=== PATIENT | female | born 1990 | race Two or more races ===

== ENCOUNTER 2018-08-12 16:54 | Emergency (ER) | payer MEDICAID ==
[~2018-08-12] VITALS: Ht 160 cm; Wt 106.6 kg
[2018-08-12 17:33] VITALS: BP 108/57
== END 2018-08-12 20:05 | disposition home or self-care (01) ==
LOC: ER 16:57
DX: M62.830 Muscle spasm of back (principal); M25.512 Pain in left shoulder; M25.511 Pain in right shoulder; M54.2 Cervicalgia; V49.59XA Passenger injured in collision with other motor vehicles in traffic accident, initial encounter; Y93.89 Activity, other specified; Y99.8 Other external cause status; Y92.488 Other paved roadways as the place of occurrence of the external cause
CPT/HCPCS: 72040; 72070; 72100; 73020

== ENCOUNTER 2018-11-05 08:04 | Emergency (ER) | payer OTHER, MEDICAID ==
[~2018-11-05] VITALS: Ht 160 cm; Wt 104.3 kg
[2018-11-05] MEDS ORDERED: ACETAMINOPHEN 325 MG TAB PO ONE (08:15)
[2018-11-05 08:17] VITALS: BP 111/69
[2018-11-05] MEDS ORDERED: IBUPROFEN 800 MG TAB PO ONE (08:30)
[2018-11-05] MEDS ORDERED: cefTRIAXone SOD 1,000 MG VL IM ONE (08:30)
== END 2018-11-05 10:01 | disposition home or self-care (01) ==
LOC: ER 08:08
DX: J20.9 Acute bronchitis, unspecified (principal); J03.90 Acute tonsillitis, unspecified; N39.0 Urinary tract infection, site not specified; R51 Headache
CPT/HCPCS: 71046; 81002; 81025; 96372; 99283; J0696